=== PATIENT | female | born 1960 | race Caucasian/White ===

== ENCOUNTER → 2020-06-28 | Outpatient (CLI) | payer BC, OTHER ==
[~2020-06-28] MED LIST: CLARITIN10 MG PO; PREDNISONE 20 M20 MG PO; ZANTAC 150MG T150 MG PO
== END ==
LOC: LAB 13:13
PROVIDERS: ATTEND Family Medicine
DX: R50.9 Fever, unspecified (principal); R05 Cough; Z20.828 Contact with and (suspected) exposure to other viral communicable diseases